=== PATIENT | female | born 1995 | race Hispanic/Latino ===

== ENCOUNTER → 2021-09-30 | Outpatient (CLI) | payer BC ==
[2021-09-30 12:42] LABS: CHOLESTEROL 110 mg/dL (<200); HDL CHOLESTEROL 55 mg/dL (35-85); LDL DIRECT 68 mg/dL (0-99); TRIGLYCERIDES 40 mg/dL (30-200)
== END | disposition home or self-care (01) ==
LOC: LAB 11:06
PROVIDERS: ATTEND Student in an Organized Health Care Education/Training Program
DX: R07.9 Chest pain, unspecified (principal)
CPT/HCPCS: 36415; 80061